=== PATIENT | female | born 1940 | race Caucasian/White ===

== ENCOUNTER 2022-11-23 08:52 | Inpatient (IN) | payer OTHER ==
[2022-11-23 09:06] VITALS: BMI 26.6
[2022-11-23] MEDS ORDERED: ACETAMINOPHEN 500 MG TABLET (FP) PO ONE (09:36)
[2022-11-23] MEDS ORDERED: ACETAMINOPHEN 325 MG TABLET (FP) ONE (09:56)
[2022-11-23 10:05] LABS: BASO % 0.1 % (0-2.0); HEMATOCRIT 40.6 % (32.4-45.2); HEMOGLOBIN 13.3 GM/dL (10.7-15.3); LYMPH % 6.7 % (8-40); MCH 28.9 pg (25.7-33.7); MCHC 32.8 g/dl (32.0-36.0); MEAN CELL VOLUME 88.3 fl (80-96); MEAN PLT VOLUME 7.7 fl (7.5-11.1); MONO % 10.2 % (3.8-10.2); PLATELET COUNT 353 10^3/uL (134-434); RDW 15.2 % (11.6-15.6); WHITE BLOOD COUNT 8.9 K/mm3 (4.0-10.0)
[2022-11-23 10:26] LABS: CALCIUM 8.9 mg/dL (8.5-10.1)
[2022-11-23 10:27] LABS: ALBUMIN 3.9 g/dl (3.4-5.0); BLOOD UREA NITROGEN 26.2 mg/dL (7-18)
[2022-11-23 10:30] LABS: CREATININE 1.2 mg/dL (0.55-1.3)
[2022-11-23 10:32] LABS: BILIRUBIN,TOTAL 1.7 mg/dL (0.2-1)
[2022-11-23 10:50] LABS: ERYTHROCYTE SEDIMENTATION RATE 44 mm/hr (0-30)
[2022-11-23 12:38] VITALS: RESP 18
[2022-11-23] MEDS ORDERED: NAPROXEN 500 MG TABLET PO PRN (12:57)
[2022-11-23] MEDS: ACETAMINOPHEN 325 MG TABLET (FP) PO PRN ×2 (14:41→22:02)
[2022-11-23 18:23] LABS: BF WBC & OTHER NUCLEATED CELLS 40251 /mm3
[2022-11-23 19:32] LABS: BODY FLUID MACROPHAGES 3 %
[2022-11-23] MEDS: HEPARIN NA (PORCINE) 5,000 UNITS/ML 1ML VIAL SQ SCH (22:03)
[2022-11-24] MEDS: HEPARIN NA (PORCINE) 5,000 UNITS/ML 1ML VIAL SQ SCH ×2 (10:11→21:42)
[2022-11-24 11:56] LABS: BASO % 0.5 % (0-2.0); EOS % 0.4 % (0-4.5); HEMATOCRIT 38.3 % (32.4-45.2); HEMOGLOBIN 13.1 GM/dL (10.7-15.3); LYMPH % 18.1 % (8-40); MCH 29.8 pg (25.7-33.7); MCHC 34.3 g/dl (32.0-36.0); MEAN CELL VOLUME 86.9 fl (80-96); MONO % 12.5 % (3.8-10.2); NEUT % 68.5 % (42.8-82.8); PLATELET COUNT 354 10^3/uL (134-434); RBC 4.41 M/mm3 (3.60-5.2); RDW 15.1 % (11.6-15.6); WHITE BLOOD COUNT 7.6 K/mm3 (4.0-10.0)
[2022-11-24 12:26] LABS: POTASSIUM 3.9 mmol/L (3.5-5.1)
[2022-11-24 12:30] LABS: CALCIUM 8.3 mg/dL (8.5-10.1)
[2022-11-24 12:31] LABS: ALBUMIN 3.2 g/dl (3.4-5.0)
[2022-11-24 12:33] LABS: URIC ACID 4.2 mg/dL (2.6-7.2)
[2022-11-24 12:34] LABS: BILIRUBIN,TOTAL 1.4 mg/dL (0.2-1)
[2022-11-24 12:35] LABS: TOT PROT 7.3 g/dl (6.4-8.2)
[2022-11-24] MEDS ORDERED: ACETAMINOPHEN WITH CODEINE 300MG/30MG TABLET PO PRN (21:31)
[2022-11-25] MEDS: HEPARIN NA (PORCINE) 5,000 UNITS/ML 1ML VIAL SQ SCH ×2 (09:34→22:15)
[2022-11-25 10:36] LABS: BASO % 0.3 % (0-2.0); EOS % 0.2 % (0-4.5); HEMATOCRIT 39.9 % (32.4-45.2); HEMOGLOBIN 13.2 GM/dL (10.7-15.3); LYMPH % 12.8 % (8-40); MCH 29.5 pg (25.7-33.7); MCHC 33.1 g/dl (32.0-36.0); MEAN CELL VOLUME 89.1 fl (80-96); MEAN PLT VOLUME 7.9 fl (7.5-11.1); MONO % 7.7 % (3.8-10.2); PLATELET COUNT 383 10^3/uL (134-434); RBC 4.48 M/mm3 (3.60-5.2); RDW 14.9 % (11.6-15.6); WHITE BLOOD COUNT 7.1 K/mm3 (4.0-10.0)
[2022-11-25 11:09] LABS: POTASSIUM 3.8 mmol/L (3.5-5.1)
[2022-11-25 11:15] LABS: CALCIUM 8.4 mg/dL (8.5-10.1)
[2022-11-25 11:16] LABS: BLOOD UREA NITROGEN 16.5 mg/dL (7-18)
[2022-11-25 11:18] LABS: CREATININE 0.8 mg/dL (0.55-1.3); URIC ACID 3.9 mg/dL (2.6-7.2)
[2022-11-25 11:20] LABS: BILIRUBIN,TOTAL 1.2 mg/dL (0.2-1); TOT PROT 7.1 g/dl (6.4-8.2)
[2022-11-25] MEDS ORDERED: predniSONE 20 MG TABLET (UD) PO SCH (12:45)
[2022-11-25 22:49] LABS: BF WBC & OTHER NUCLEATED CELLS 9689 /mm3; BODY FLUID MONOCYTE 9 %
[2022-11-26] MEDS: HEPARIN NA (PORCINE) 5,000 UNITS/ML 1ML VIAL SQ SCH ×2 (09:12→21:59)
[2022-11-27] MEDS: HEPARIN NA (PORCINE) 5,000 UNITS/ML 1ML VIAL SQ SCH ×2 (09:31→22:14)
[2022-11-27] MEDS: OLANZapine 2.5 MG TABLET PO SCH (22:14)
[2022-11-28] MEDS: HEPARIN NA (PORCINE) 5,000 UNITS/ML 1ML VIAL SQ SCH ×2 (10:33→22:54)
[2022-11-28] MEDS: OLANZapine 2.5 MG TABLET PO SCH (22:54)
[2022-11-29] MEDS: HEPARIN NA (PORCINE) 5,000 UNITS/ML 1ML VIAL SQ SCH (10:28)
[2022-11-29 15:03] VITALS: BP 131/63; PULSE 81; TEMP 97.5
== END 2022-11-29 19:07 | DRG 554 ==
LOC: JER 08:52 → JERBED 11:36 → J5S 14:05 → OBSVTOIN 11-25 08:51 → J8W 11-27 18:58
PROVIDERS: ADMIT Internal Medicine; ATTEND Internal Medicine
PROC: 0S9C3ZX Drainage of Right Knee Joint, Percutaneous Approach, Diagnostic (ICD-10-PCS; principal; 2022-11-23)
DX: M17.11 Unilateral primary osteoarthritis, right knee (principal); R45.851 Suicidal ideations; M25.461 Effusion, right knee; R26.2 Difficulty in walking, not elsewhere classified; M11.261 Other chondrocalcinosis, right knee; Z74.01 Bed confinement status
CPT/HCPCS: 36415; 71045-TC-FY; 73562-TC-RT-FY; 80053; 84550; 85025; 85651; 86140; 87070; 87075; 87205; 87635; 89060; 97116-GP; 97162-GP; 99285-25; G0378; J1644